=== PATIENT | male | born 1985 | race Caucasian/White ===

== ENCOUNTER 2018-01-13 11:41 | Outpatient (CLI) | payer BC ==
--- NOTE | 2018-01-13 13:53 | RAD ---
RIGHT KNEE FOUR VIEWS: History: 32-year-old male with history of chronic right knee pain, worsening recently. FINDINGS: There is a circumscribed 0.6 cm diameter ossific focus posterior to the tibial intercondylar eminence , possibly a small intraarticular body. There is a very small, approximately 1 x 2 mm diameter circum scribed ossific focus between the patella and the femur, possibly a small intraarticular body. Minima l degenerative changes. Possible remote appearing osteochondral focus involving the lateral aspect of the lateral femoral condyle. No abnormal joint effusion. NO acute fracture or dislocation. IMPRESSION: Probable two intraarticular bodies. Minimal degenerative changes. Probable osteochondral focus involv ing the lateral femoral condyle without joint effusion. No acute fracture. Consider follow up MRI. POS: [facility]
== END 2018-01-13 11:42 | disposition home or self-care (01) ==
LOC: SCSRAD 11:41
DX: M25.561 Pain in right knee (principal); M17.11 Unilateral primary osteoarthritis, right knee

== ENCOUNTER 2018-07-30 14:10 | Emergency (ER) | payer BC, OTHER ==
[2018-07-30 14:30] LABS: #Basophils 0.1 thou/uL (0.0-0.2); #Eosinphils 0.1 thou/uL (0.0-0.7); #Lymphocytes 2.7 thou/uL (1.20-3.40); #Monocytes 0.4 thou/uL (0.11-0.59); #Neutrophils 5.3 thou/uL (1.40-6.50); %Basophils 0.7 % (0.0-1.0); %Eosinophils 1.4 % (0.0-10.0); %Lymphocytes 31.8 % (21.0-51.0); %Neutrophils 61.1 % (42.0-75.0); Mean Corpuscular HGB CONC 33.8 g/dL (32.0-36.0); Mean Corpuscular Hemoglobin 28.7 pg (27.0-31.0); Mean Platelet Volume 8.3 fL (7.4-10.4); Platelet Count 181 thou/uL (130-400); RBC Distribution Width 11.8 % (11.5-14.5); Red Blood Cell (RBC) Count 5.58 mill/uL (4.70-6.10); White Blood Cell (WBC) Count 8.6 thou/uL (4.8-10.8)
--- NOTE | 2018-07-30 14:46 | RAD ---
LEFT FEMUR AP AND LATERAL TOTAL OF FOUR IMAGES OBTAINED: Indication: Trauma with pain. FINDINGS: No fracture. No osseous abnormality identified. IMPRESSION: No acute abnormality. POS: [facility]
--- NOTE | 2018-07-30 14:48 | RAD ---
PELVIC ONE VIEW: Comparison: None. History: Trauma FINDINGS: This is image is limited due to overlying radiopaque objects. There is mild narrowing of both hip taran nts. There is femoral head/neck cortical bump bilaterally. SI joints are not widened. The pubic symphysis is not widened. Both obturator rings are normal. IMPRESSION: No acute displaced fracture or malalignment. POS: [facility]
[2018-07-30 15:04] LABS: ALT (SGPT) 18 U/L (8-55); AST (SGOT) 18 U/L (5-34); Albumin 4.4 g/dL (3.5-5.0); Alkaline Phosphatase 72 U/L (40-150); Anion Gap 14 mmol/L (10-20); BUN (Urea Nitrogen) 18 mg/dL (8.9-20.6); Bilirubin, Total 0.6 mg/dL (0.2-1.2); CK (CPK) 252 U/L (30-200); Calc. Creatinine Clearance 0 mL/min (70-130); Calcium 9.3 mg/dL (7.8-10.44); Carbon Dioxide 24 mmol/L (22-29); Chloride 106 mmol/L (98-107); Estimated GFR-MDRD 78; Globulin 3.1 g/dL (2.4-3.5); Glucose 112 mg/dL (70-105); Potassium 4.3 mmol/L (3.5-5.1); Protein, Total 7.5 g/dL (6.0-8.3); Sodium 140 mmol/L (136-145)
--- NOTE | 2018-07-30 15:05 | RAD ---
LEFT KNEE 4 VIEWS: HISTORY: Trauma. COMPARISON: None. FINDINGS: There is swelling in the anterior distal femoral soft tissues. Small joint effusion. No acute displ aced fracture or malalignment. IMPRESSION: Distal anterior soft tissue swelling. No acute displaced fracture of the knee. POS: [facility]
[2018-07-30] MEDS ORDERED: HYDROcodone/Acetaminophen 10/325 mg Tablet ONE (15:57)
== END 2018-07-30 21:19 | disposition home or self-care (01) ==
LOC: ERS 14:10
DX: S70.12XA Contusion of left thigh, initial encounter (principal); S80.812A Abrasion, left lower leg, initial encounter; F43.10 Post-traumatic stress disorder, unspecified; W24.0XXA Contact with lifting devices, not elsewhere classified, initial encounter; Y92.69 Other specified industrial and construction area as the place of occurrence of the external cause
CPT/HCPCS: 72170; 80053; 82550; 85025; G0390